=== PATIENT | female | born 1965 ===

== ENCOUNTER → 2016-11-25 | Outpatient (CLI) | payer OTHER ==
[~2016-11-25] VITALS: Ht 172.7 cm; Wt 109.0 kg
[~2016-11-25] MED LIST: BUSP10TA23 PO; CLON.5 PO; ESOM20CA31 PO; ESTR5PAT TD; ESZO2 PO; INUL1TAB3 PO; LAMO200T PO; RISP1 PO; [UNRECOGNIZED DRUG - OTHER] PO
[2016-11-25 11:16] VITALS: BP 109/71
== END | disposition home or self-care (01) ==
LOC: SRCNTR 11:01
PROVIDERS: ATTEND Hospitalist
DX: K21.9 Gastro-esophageal reflux disease without esophagitis (principal); Z78.0 Asymptomatic menopausal state; G47.00 Insomnia, unspecified; F31.9 Bipolar disorder, unspecified
CPT/HCPCS: G0463